=== PATIENT | female | born 1995 | race Caucasian/White ===

== ENCOUNTER 2018-01-29 07:46 | Outpatient (CLI) | payer OTHER ==
--- NOTE | 2018-01-29 15:31 | MRI ---
MRI LEFT ANKLE: DATE: 01/29/2018. PROVIDED CLINICAL HISTORY: Left ankle pain status post injury. FINDINGS: No comparisons. There is increased signal intensity on fluid-sensitive sequences involving the poste rolateral margin of the extensor digitorum longus muscle at the distal tibia, compatible with low-gra de partial myofascial tear. The anterior extensor, medial flexor, peroneal, tibial, and Achilles ten dons demonstrate an intact MR appearance. There is greater than physiologic fluid present about the posterior tibialis and within the common peroneal tendon sheath. There is a corticated ossific density adjacent to the anterior aspect of the distal fibula that may r eflect sequelae of prior fracture versus an accessory center of ossification. Well-defined fibers of the anterior talofibular ligament are not identified. The remainder of the medial ankle ligaments a ppear intact. There is a low-lying peroneus brevis muscle belly. No regional joint effusion is evident. There is signal alteration present within the os trigonum and within the adjacent parent talus. Regional marrow signal appears otherwise unremarkable. The plant ar aponeurosis appears normal. There is a tiny focus of signal alteration present involving the late ral aspect of the talar dome seen to best advantage on the coronal sequence likely reflecting a low-g rade osteochondral lesion. No overlying articular cartilage defect is apparent. There is preservatio n of the normal fat signal intensity within the tarsal sinus. The courses of the regional major neurovascular structures appear unremarkable. IMPRESSION: 1. Low-grade partial-thickness myofascial tearing involving extensor digitorum muscle. 2. Intact fibers of the anterior talofibular ligament are not identified. Accessory center of ossif ication versus the sequelae of prior fracture adjacent to the distal fibula anteriorly. 3. Edema within and about the os trigonum, correlate for os trigonum syndrome. 4. Small low-grade osteochondral defect involving the lateral talar dome. POS: OFF
== END 2018-01-29 07:47 | disposition home or self-care (01) ==
LOC: SCSMRI 07:46
PROVIDERS: ATTEND Orthopaedic Surgery
DX: S93.402A Sprain of unspecified ligament of left ankle, initial encounter (principal); S96.812A Strain of other specified muscles and tendons at ankle and foot level, left foot, initial encounter